=== PATIENT | female | born 1930 | race Caucasian/White ===

== ENCOUNTER 2017-09-13 22:01 | Inpatient (IN) | payer MEDICARE ==
[2017-09-13] MEDS ORDERED: Morphine 4 MG/ML VIAL ONE (22:46)
--- NOTE | 2017-09-13 23:09 | RAD ---
AP VIEW CHEST: HISTORY: Preoperative chest radiograph. Patient with right hip fracture. TECHNIQUE: AP view chest is obtained. FINDINGS: The lungs are well aerated. No evidence of active intrathoracic disease is seen. No evidence of eff usions, pneumonia, or pneumothorax is seen. IMPRESSION: Unremarkable anterior-posterior view chest. POS: [facility]
[2017-09-13] MEDS ORDERED: hydrALAZINE 20 MG/ML VIAL ONE (23:32)
[2017-09-13] MEDS ORDERED: traMADol HCl 50 MG TAB PO PRN (23:52)
[2017-09-13] MEDS ORDERED: Dextrose 50% Abboject 50 ML SYRINGE SLOW IVP PRN (23:54)
[2017-09-13] MEDS ORDERED: Ondansetron HCl/PF 4 MG/2 ML Vial IVP PRN (23:54)
[2017-09-13] MEDS ORDERED: Ondansetron ODT 4 MG TAB PO PRN (23:54)
[2017-09-13] MEDS ORDERED: Labetalol HCl 100 MG/20 ML VIAL SLOW IVP PRN (23:54)
[2017-09-13] MEDS ORDERED: Dextrose 5% in Water 1,000 ML IV PRN (23:54)
[2017-09-13] MEDS ORDERED: hydrALAZINE 20 MG/ML VIAL SLOW IVP PRN (23:54)
--- NOTE | 2017-09-14 01:57 | HP ---
DATE OF ADMISSION: 09/14/2017 ATTENDING PHYSICIAN: Dr. Currie. TRAUMA ACTIVATION: Not applicable. HISTORY OF PRESENT ILLNESS: Isabel Holloway is an 87-year-old female who presented here to [facility] as a [place] transfer status post fall. She was evaluated in the [place] [facility] and fou nd to have a right femoral neck and greater trochanteric fracture. Orthopedic Surgery was notified a ar Trauma Services was asked to admit. Per patient, she was attempting to move a chair in her house when the reclining part of the chair came out and knocked her over causing her to fall on the floor. She had immediate onset of right hip pain. Upon my evaluation, she has chief complaint of 7/10 hip pain improved with medications, worsened with movement. Pain is constant. ALLERGIES: None. HOME MEDICATIONS: Patient takes metformin unknown dose and unknown antihypertensives. Her pharmacy is [facility] in [place] which is currently closed. CHRONIC MEDICAL ILLNESSES: Include diabetes, coronary artery disease, status post percutaneous trans luminal coronary angioplasty, hypertension, and CKD. PAST SURGICAL HISTORY: PTCA. SOCIAL HISTORY: The patient is a retired information officer. She lives alone and ambulates independently . Denies alcohol, tobacco or illicit drug use. FAMILY HISTORY: Significant for father from cancer, details unknown. Mother with coronary artery disease. Sisters with diabetes and a daughter with diabetes. REVIEW OF SYSTEMS: A 10-point review of systems was performed and essentially negative except as ind icated in the HPI. PHYSICAL EXAMINATION: VITAL SIGNS: Blood pressure 166/67, pulse 88, respirations 17, O2 sat 94% on 2 liters nasal cannula, temperature 98.5. GENERAL: Elderly appearing female in no acute distress, resting in bed. HEAD: Normocephalic, atraumatic. EYES: Pupils were PERRL. Extraocular movements are intact. NECK: Supple. Trachea is midline. CHEST: Atraumatic. No tenderness to palpation. Normal work of breathing, symmetric rise. LUNGS: Clear to auscultation bilaterally. CARDIOVASCULAR: Regular rate and rhythm, no obvious murmurs, rubs, or gallops. GASTROINTESTINAL: Abdomen is soft, nontender, nondistended. MUSCULOSKELETAL: Moves all extremities x4. There is a skin tear on the right elbow and the right lo wer extremity range of motion is limited secondary to pain. There is tenderness to palpation of the right hip. She is neurovascularly intact distal to the side of her injury. NEUROLOGIC: GCS is 15. No focal deficit is noted. LABORATORY DATA AND IMAGING DATA: WBC 13.1, hemoglobin 12.4, hematocrit 34.2, platelet count 188, IN R 0.9. Sodium 144, potassium 4.2, chloride 106, carbon dioxide 26, BUN 31, creatinine 1.69, glucose 233, calcium 9.3, AST and ALT within normal limits. EKG was sinus rhythm with first degree AV block. No evidence of STEMI. RADIOGRAPHIC FINDINGS: Right hip x-ray was read by Radiology as having limited sensitivity, but was suspicious for fracture. CT of the abdomen and pelvis was read as having a right femoral neck and gr eater trochanteric fracture. Chest x-ray with coarse interstitial markings and no obvious acute trau matic injury or cardiopulmonary process. ASSESSMENT: 1. Status post mechanical fall. 2. Right femoral neck fracture. 3. Acute traumatic pain. 4. History of diabetes with hyperglycemia. 5. History of hypertension. 6. History of coronary artery disease. 7. History of chronic kidney disease, creatinine appears to be at baseline. PLAN: 1. Admit to Trauma Services. Per discussion with Dr. Lyons, Orthopedic Surgery, plans are for op erative intervention tomorrow. Plan for operative intervention tomorrow. Perioperative pain managem ent with p.o. and IV analgesics. Reconcile home medications with the patient's home pharmacy. P.r.n . antihypertensives in the meantime. Accu-Cheks and sliding scale insulin. Postoperative PT and OT. 2. DVT and gastritis prophylaxis as appropriate. Plans for admission were discussed with the robin mayes, who vocalized her understanding. All questions were answered at the time of this dictation. Cheryl kirkland is a FULL CODE per my discussion with her at bedside. Trauma attending has been notified of admi ssion.
[2017-09-14 02:58] VITALS: BMI 21.9
[2017-09-14] MEDS: Acetaminophen 1,000 MG in Premix Bag 1 BAG IVPB SCH ×3 (03:20→12:07)
[2017-09-14] MEDS: Sodium Chloride 0.9% 1,000 ML IV SCH ×2 (04:20→17:31)
[2017-09-14 05:16] LABS: #Monocytes 0.5 thou/uL (0.11-0.59); %Eosinophils 0.2 % (0.0-10.0); %Lymphocytes 8.3 % (21.0-51.0); %Monocytes 4.1 % (0.0-10.0); %Neutrophils 87.4 % (42.0-75.0); Hemoglobin 11.1 g/dL (12.0-16.0); Mean Corpuscular HGB CONC 33.8 g/dL (32.0-36.0); Mean Corpuscular Hemoglobin 32.7 pg (27.0-31.0); Mean Corpuscular Volume 96.9 fL (78.0-98.0); Mean Platelet Volume 8.2 fL (7.4-10.4); Platelet Count 161 thou/uL (130-400); RBC Distribution Width 11.9 % (11.5-14.5); White Blood Cell (WBC) Count 12.6 thou/uL (4.8-10.8)
[2017-09-14 05:31] LABS: Anion Gap 12 mmol/L (10-20); BUN (Urea Nitrogen) 31 mg/dL (9.8-20.1); Calc. Creatinine Clearance 27 mL/min (70-130); Calcium 8.8 mg/dL (7.8-10.44); Carbon Dioxide 25 mmol/L (23-31); Chloride 108 mmol/L (98-107); Estimated GFR-MDRD 35; Glucose 229 mg/dL (83-110); Magnesium 1.4 mg/dL (1.6-2.6); Phosphorus 3.6 mg/dL (2.3-4.7); Potassium 4.1 mmol/L (3.5-5.1); Sodium 141 mmol/L (136-145)
[2017-09-14] MEDS: traMADol HCl 50 MG TAB PO SCH ×4 (05:31→23:41)
[2017-09-14 05:33] LABS: CKMB 0.8 ng/mL (0-6.6); Troponin I 0.017 ng/mL (< 0.028)
[2017-09-14] MEDS ORDERED: Magnesium 2 GM/NS 0.9% 100 ML 2 GM in Premix Bag 1 BAG IVPB SCH (07:45)
[2017-09-14] MEDS ORDERED: CEFAZOLIN/Water 2 GM/20 ML SYRINGE SLOW IVP SCH (07:45)
--- NOTE | 2017-09-14 08:45 | CON ---
DATE OF CONSULTATION: 09/14/2017 CHIEF COMPLAINT: Right hip pain. HISTORY OF PRESENT ILLNESS: Ms. Holloway is an 87-year-old female who was attempting to [facility] yesterday evening. She fell backwards after losing balance. She landed on her right side. She h ad pain in the hip. She was unable to ambulate. She was taken to the hospital and found to have a f emoral neck fracture. She initially went to [place] [facility]. She has been admitted to the hospital. Sh e is resting comfortably. No significant complications or problems overnight. Pain is controlled. ALLERGIES: None. MEDICATIONS: The patient takes metformin and medication for hypertension. PAST MEDICAL HISTORY: Diabetes, coronary artery disease, hypertension, chronic kidney disease. PAST SURGICAL HISTORY: Coronary catheterization. SOCIAL HISTORY: The patient denies any tobacco, alcohol or drug use. She independently ambulates. FAMILY MEDICAL HISTORY: Noncontributory. REVIEW OF SYSTEMS: Positive for mild hip pain with motion, otherwise negative 10-point review of sys tems. IMAGES: X-rays of the pelvis and hip demonstrate an impacted minimally displaced femoral neck fractu re on the right side. PHYSICAL EXAMINATION: VITAL SIGNS: Temperature is 98.2, pulse is 69, respiratory 18, blood pressure 139/65. GENERAL: She is alert and oriented, no apparent distress, lying supine. HEENT: Normocephalic, atraumatic. RESPIRATORY: Breathing comfortably. ABDOMEN: Soft and nontender, nondistended. MUSCULOSKELETAL: The patient's right lower extremity has good motion. She has intact flexion and ex tension of the foot and ankle. Palpable pulse. She has pain with hip movement. Upper extremities a re atraumatic. IMPRESSION: Right impacted minimally displaced femoral neck fracture in an elderly female. PLAN: At this point, the patient will need operative intervention. We will plan to take her to the operating room for percutaneous screw fixation of the femoral neck fracture. She is aware of risks a nd benefits. She wants to proceed with surgery. Goal of surgery, early mobilization and to prevent complications of prolonged bed rest. Risks have been reviewed. She will have medical optimization.
[2017-09-14] MEDS ORDERED: Famotidine/PF 20 mg/2ml Vial SLOW IVP SCH (09:00)
[2017-09-14] MEDS: Polyethylene Glycol 3350 17 GM Packet PO SCH (09:20)
[2017-09-14] MEDS: Famotidine 20 MG TAB PO SCH (09:20)
[2017-09-14] MEDS: Senokot S 8.6-50 MG TAB PO SCH ×2 (09:20→21:37)
--- NOTE | 2017-09-14 11:15 | PRG ---
DATE OF SERVICE: 09/14/2017 SUBJECTIVE: Isabel Holloway is an 87-year-old female who had a mechanical fall and sustained a right h ip fracture. There were no acute overnight events after admission. This morning, the patient states that her pain has been well controlled. She has been seen and evaluated by Orthopedic Surgery who p lanned for operative intervention later today. Upon our evaluation she vocalizes no complaint. OBJECTIVE: VITAL SIGNS: Temperature 98.2, pulse 69, respiration rate 18, O2 sat 92% on room air, blood pressure 139/65. GENERAL: Elderly female in no acute distress, resting in bed. PULMONARY: Normal work of breathing. Symmetric rise. CARDIOVASCULAR: Regular rate and rhythm. GASTROINTESTINAL: Soft, nontender, nondistended. MUSCULOSKELETAL: Moves all extremities x4. NEUROLOGIC: No focal deficit is noted. LABORATORY DATA: WBC 12.6, hemoglobin 11.1, hematocrit 32.9, platelet count 161. Sodium 141, potass ium 4.1, chloride 108, carbon dioxide 25, BUN 31, creatinine 1.43, glucose 229. Phosphorus 3.6, magn esium 1.4. ASSESSMENT: 1. Status post mechanical fall. 2. Acute traumatic pain. 3. Right hip fracture. 4. Hypomagnesemia. 5. History of hypertension. 6. Diabetes with hyperglycemia. 7. History of coronary artery disease. 8. History of chronic kidney disease, stable. PLAN: Continue gentle IV fluid hydration. Follow the patient postoperatively. Perioperative pain m anagement. Postoperative PT and OT. The patient lived independently prior to this accident and will need inpatient rehab consultation. Plan of care was discussed with the patient at bedside and all q uestions were answered at the time of this dictation. The patient was seen and evaluated with Dr. Menendez.
[2017-09-14] MEDS ORDERED: CEFAZOLIN/Water 2 GM/20 ML SYRINGE ONE (11:44)
[2017-09-14] MEDS ORDERED: Midazolam HCl 2 mg/2 ml Vial ONE (12:11)
[2017-09-14] MEDS ORDERED: Fentanyl 100 MCG/2 ML VIAL ONE ×2 (12:11→12:42)
[2017-09-14] MEDS ORDERED: Bupivacaine HCl 0.5%/Epinephrine 1:200,000/PF 30 ml Vial ONE (13:39)
[2017-09-14] MEDS ORDERED: PROPOFOL 200 MG/20 ML VIAL ONE (13:42)
[2017-09-14] MEDS ORDERED: Lidocaine 1% PF 5 ML VIAL ONE (13:42)
[2017-09-14] MEDS ORDERED: Glycopyrrolate 0.2 MG/ML 5 ML SYRINGE ONE (13:42)
[2017-09-14] MEDS ORDERED: Promethazine HCl 25 MG/ML VIAL IM PRN (13:54)
[2017-09-14] MEDS ORDERED: Ondansetron HCl/PF 4 MG/2 ML Vial IVP PRN (13:54)
[2017-09-14] MEDS ORDERED: Promethazine HCl 25 MG/ML VIAL SLOW IVP PRN (13:54)
--- NOTE | 2017-09-14 14:06 | OP ---
DATE OPERATION: 09/14/2017 OPERATION: Dynamic hip screw fixation of basicervical femoral neck fracture. PREOPERATIVE DIAGNOSIS: Femoral neck fracture, right hip. POSTOPERATIVE DIAGNOSIS: Femoral neck fracture, right hip. COMPLICATIONS: None. ESTIMATED BLOOD LOSS: 100 mL. SURGEON: Damion Martin M.D. ELEMENTARY READING SPECIALIST: Bora Chinchilla PA-C. IMPLANTS: Synthes dynamic hip screw with 3 hole side plate. INDICATIONS: Ms. Holloway is an 87-year-old female who fell. She fractured the basicervical region o f her femoral neck. She was indicated for dynamic hip screw fixation to restore anatomic alignment a nd promote healing and promote early mobilization. Risks have been reviewed. She elected to proceed with the operation. DESCRIPTION OF PROCEDURE: Ms. Holloway was identified in the preoperative holding area. Her correct extremity was marked. She was carried to the operating room. She was positioned supine. General an esthesia was induced. A multidisciplinary timeout was performed. The right lower extremity was prep ped and draped in sterile fashion. We began the procedure with evaluation under intraoperative x-ray. We reduced the fracture back into an anatomic position. At this point, we made a lateral incision. We dissected down through the sub cutaneous tissues to the fascia which was opened. We then exposed the lateral cortex of the femur. At this point, a 135 degree guide was used to place a guidewire in the center position of the femoral head. Once this was accomplished, we overdrilled the guidewire. We then placed our dynamic hip scr ew and side plate. Three screws were placed through the plate as well. This completed fixation. We took x-rays in orthogonal planes. We thoroughly irrigated with copious lavage. At this point, the wound was closed in layers appropriately. The patient was taken to the recovery room in good conditi on.
--- NOTE | 2017-09-14 17:11 | RAD ---
RIGHT HIP TWO VIEWS: HISTORY: ORIF of right femur fracture. COMPARISON: 09/13/2017 FINDINGS/IMPRESSION: Two limited intraoperative fluoroscopic views of the right hip were submitted for interpretation. Th e patient is status post ORIF of the proximal right femur fracture. No perihardware lucency is ident ified. POS: [facility]
[2017-09-14] MEDS: Acetaminophen 500 MG TAB PO SCH ×2 (17:32→23:41)
[2017-09-14] MEDS: Pravastatin Sodium 40 MG TAB PO SCH (21:37)
[2017-09-14] MEDS: CEFAZOLIN/Water 2 GM/20 ML SYRINGE SLOW IVP SCH (21:37)
[2017-09-15] MEDS: CEFAZOLIN/Water 2 GM/20 ML SYRINGE SLOW IVP SCH (03:29)
[2017-09-15] MEDS: Acetaminophen 500 MG TAB PO SCH ×3 (05:33→17:51)
[2017-09-15] MEDS: traMADol HCl 50 MG TAB PO SCH ×3 (05:33→17:51)
[2017-09-15] MEDS: Sodium Chloride 0.9% 1,000 ML IV SCH ×2 (05:34→14:59)
[2017-09-15 06:46] LABS: #Eosinphils 0.1 thou/uL (0.0-0.7); #Lymphocytes 1.1 thou/uL (1.20-3.40); #Monocytes 0.7 thou/uL (0.11-0.59); #Neutrophils 9.1 thou/uL (1.40-6.50); %Basophils 0.1 % (0.0-1.0); %Eosinophils 0.8 % (0.0-10.0); %Lymphocytes 9.8 % (21.0-51.0); %Monocytes 6.7 % (0.0-10.0); %Neutrophils 82.6 % (42.0-75.0); Hemoglobin 10.1 g/dL (12.0-16.0); Mean Corpuscular HGB CONC 33.8 g/dL (32.0-36.0); Mean Corpuscular Hemoglobin 33.5 pg (27.0-31.0); Mean Platelet Volume 8.6 fL (7.4-10.4); Platelet Count 131 thou/uL (130-400); RBC Distribution Width 11.9 % (11.5-14.5); Red Blood Cell (RBC) Count 3.01 mill/uL (4.20-5.40)
[2017-09-15 06:52] LABS: Anion Gap 11 mmol/L (10-20); BUN (Urea Nitrogen) 23 mg/dL (9.8-20.1); Calc. Creatinine Clearance 29 mL/min (70-130); Calcium 8.3 mg/dL (7.8-10.44); Carbon Dioxide 23 mmol/L (23-31); Chloride 109 mmol/L (98-107); Estimated GFR-MDRD 37; Glucose 170 mg/dL (83-110); Magnesium 1.6 mg/dL (1.6-2.6); Phosphorus 3.2 mg/dL (2.3-4.7); Sodium 139 mmol/L (136-145)
[2017-09-15] MEDS ORDERED: Magnesium Sulfate 2 GM in Sodium Chloride 0.9% 100 ML IVPB SCH (07:30)
[2017-09-15] MEDS ORDERED: Magnesium 2 GM/NS 0.9% 100 ML 2 GM in Premix Bag 1 BAG IVPB SCH (07:45)
[2017-09-15] MEDS: Polyethylene Glycol 3350 17 GM Packet PO SCH (08:25)
[2017-09-15] MEDS: Losartan/Hydrochlorothiazide 100 mg/25 mg Tablet PO SCH (08:26)
[2017-09-15] MEDS: Senokot S 8.6-50 MG TAB PO SCH ×2 (08:26→21:34)
[2017-09-15] MEDS: Amlodipine 5 MG TAB PO SCH (08:26)
[2017-09-15] MEDS: Famotidine 20 MG TAB PO SCH (08:26)
[2017-09-15] MEDS ORDERED: Enoxaparin Sodium 40 MG/0.4 ML SYRINGE SC SCH (09:00)
[2017-09-15] MEDS ORDERED: Sodium Chloride 0.9% 500 ML IV SCH (10:00)
[2017-09-15] MEDS: HumaLOG 300 UNITS/3 ML VIAL SC PRN ×2 (12:20→18:11)
[2017-09-15] MEDS ORDERED: Sodium Chloride 0.9% 250 ML 250 ML IVPB SCH (18:45)
[2017-09-15] MEDS: Pravastatin Sodium 40 MG TAB PO SCH (21:34)
--- NOTE | 2017-09-16 00:10 | PRG ---
DATE OF SERVICE: 09/15/2017 ATTENDING PHYSICIAN: Dr. Noah Menendez. SUBJECTIVE: Ms. Holloway is an 87-year-old female who had a fall sustaining a right hip fracture. Sh e is postoperative day #1, status post ORIF of the right hip fracture. She reports the pain has been well controlled. She will mobilize with physical and occupational therapy today. OBJECTIVE: VITAL SIGNS: Temperature 97.6, pulse 95, respirations 14, O2 sat 92% room air, blood pressure 121/69 . GENERAL: Elderly female lying in bed in no acute distress. PULMONARY: Bilateral breath sounds clear. Chest movement symmetrical. No respiratory distress. HEART: Regular rate and rhythm. GASTROINTESTINAL: Soft, nontender, nondistended. MUSCULOSKELETAL: Moves all extremities x4. Cap refill brisk in all extremities. NEUROLOGIC: GCS 15. Awake, alert, and oriented x3. LABORATORY DATA: CBC: WBC 11.0, RBC 3.01, hemoglobin 10.1 down from 11.1 yesterday, hematocrit 29.8 , platelets 131. Chemistry: Sodium 139, potassium 4.0, chloride 109, carbon dioxide 23, BUN 23, cre atinine 1.35, glucose 170, calcium 8.3, phosphorus 3.2, magnesium 1.6. ASSESSMENT: 1. Status post ground level fall. 2. Right hip fracture, postoperative day #1 status post open reduction and internal fixation. 3. Acute traumatic pain, well controlled. 4. Hypomagnesemia. 5. History of hypertension. 6. History of diabetes. 7. History of coronary artery disease. 8. History of chronic kidney disease. PLAN: 1. Replace electrolytes as indicated. 2. Mobilize with physical and occupational therapy. 3. Case management for discharge planning. Rehab referral sent. 4. Continue pain management as ordered. Patient was seen and examined with Dr. Meenndez, who agrees with plan.
[2017-09-16] MEDS: Acetaminophen 500 MG TAB PO SCH ×4 (00:21→17:43)
[2017-09-16] MEDS: traMADol HCl 50 MG TAB PO SCH ×4 (00:21→17:44)
[2017-09-16 07:08] LABS: #Eosinphils 0.3 thou/uL (0.0-0.7); #Lymphocytes 1.4 thou/uL (1.20-3.40); #Monocytes 0.7 thou/uL (0.11-0.59); #Neutrophils 8.1 thou/uL (1.40-6.50); %Basophils 0.2 % (0.0-1.0); %Eosinophils 2.7 % (0.0-10.0); %Lymphocytes 13.6 % (21.0-51.0); %Monocytes 6.7 % (0.0-10.0); %Neutrophils 76.9 % (42.0-75.0); Hemoglobin 9.9 g/dL (12.0-16.0); Mean Corpuscular HGB CONC 34.5 g/dL (32.0-36.0); Mean Corpuscular Volume 98.5 fL (78.0-98.0); Mean Platelet Volume 7.8 fL (7.4-10.4); Platelet Count 127 thou/uL (130-400); RBC Distribution Width 11.9 % (11.5-14.5); Red Blood Cell (RBC) Count 2.91 mill/uL (4.20-5.40); White Blood Cell (WBC) Count 10.5 thou/uL (4.8-10.8)
[2017-09-16] MEDS ORDERED: Sodium Chloride 0.9% 500 ML IV SCH (07:15)
[2017-09-16 07:26] LABS: Anion Gap 9 mmol/L (10-20); BUN (Urea Nitrogen) 29 mg/dL (9.8-20.1); Calc. Creatinine Clearance 29 mL/min (70-130); Calcium 8.5 mg/dL (7.8-10.44); Carbon Dioxide 26 mmol/L (23-31); Chloride 109 mmol/L (98-107); Estimated GFR-MDRD 37; Glucose 166 mg/dL (83-110); Magnesium 2.1 mg/dL (1.6-2.6); Phosphorus 3.4 mg/dL (2.3-4.7); Potassium 3.9 mmol/L (3.5-5.1); Sodium 140 mmol/L (136-145)
[2017-09-16] MEDS ORDERED: Enoxaparin Sodium 30 MG/0.3 ML SYRINGE SC SCH (09:00)
--- NOTE | 2017-09-16 09:52 | RAD ---
SINGLE VIEW OF THE CHEST: Comparison: 09-13-17 History: Hypoxia. FINDINGS: Single view of the chest shows a normal sized cardiomediastinal silhouette. There is no evidence of c onsolidation, mass, or pleural effusion. The bones are unremarkable. IMPRESSION: No evidence of acute cardiopulmonary disease. POS: [facility]
[2017-09-16] MEDS: Senokot S 8.6-50 MG TAB PO SCH (09:55)
[2017-09-16] MEDS: Losartan/Hydrochlorothiazide 100 mg/25 mg Tablet PO SCH (09:55)
[2017-09-16] MEDS: Polyethylene Glycol 3350 17 GM Packet PO SCH (09:56)
[2017-09-16] MEDS: Amlodipine 5 MG TAB PO SCH (09:56)
[2017-09-16] MEDS: Famotidine 20 MG TAB PO SCH (09:56)
[2017-09-16] MEDS: Sodium Chloride 0.9% 1,000 ML IV SCH (10:01)
--- NOTE | 2017-09-16 10:57 | PQF ---
DATE: 09-16-17 / 09-22-17 ATTN: KATHYA MONTENEGRO NP / DR. ODOM Please exercise your independent, professional judgment in responding to the clarification form. Clinical indicators are provided on the bottom of this form for your review Please check appropriate box(s): [ ] Acute Renal Failure (ARF) / Acute Kidney Injury (NA) [ ] Acute on Chronic Renal Failure please specify Stage of CKD (see below) [ x] CKD without ARF/NA please specify Stage of CKD____stage III [ ] Other diagnosis [ ] Unable to determine In addition, please specify: Present on Admission (POA): [ x ] Yes [ ] No [ ] Unable to determine National Kidney Foundation Guidelines for CKD Staging Stage I Kidney damage with normal or increased GFR GFR > 90 Stage II Kidney damage with mildly decreased GFR GFR 60-89 Stage III Kidney damage with moderately decreased GFR GFR 30-59 Stage IV Kidney damage with severely decreased GFR GFR 16-29 Stage V Kidney failure GFR<15 ESRD End Stage Renal Disease On dialysis Acute Renal Failure/Acute Kidney Failure defined as: Increases in SCr by (>) 0.3 mg/dl within 48 hours OR- Increases in SCr by (>) 1.5 times baseline, known or presumed to have occurred within the prior 7 days OR- Urine volume < 0.5 ml/kg/hour for 6 hours (KDIGO supplement 2012 for RIFLE/ALICIA criteria) For continuity of documentation, please document condition throughout progress notes and discharge summary. Thank You. CLINICAL INDICATORS - SIGNS / SYMPTOMS / LABS H&P: HISTORY OF CHRONIC KIDNEY DISEASE CONSULT NOTE DR. LISA 09-14-17: HISTORY CKD GFR: 09-14-17: 35 09-15-17: 37 09-16-17: 37 CREATININE: 18: 1.43 18: 1.35 09-16-17: 1.36 BUN: 09-14-17: 31 18: 23 09-16-17: 29 RISK FACTORS: H&P: HOME MEDICATIONS: PATIENT TAKES METFORMIN UNKNOWN ANTIHYPERTENSIVES, HX OF DM, CAD, HTN, CKD TREATMENTS: MAR: IVF NS (This form is maintained as a part of the permanent medical record) 2014 [employer] All Rights Reserved [email or web address] Office: [phone] [facility]
[2017-09-16] MEDS: HumaLOG 300 UNITS/3 ML VIAL SC PRN ×2 (12:54→17:45)
[2017-09-16 17:08] VITALS: BP 159/70; TEMP 97.2
--- NOTE | 2017-09-17 02:41 | DIS ---
DATE OF ADMISSION: 09/13/2017 DATE OF DISCHARGE: 09/16/2017 ADMITTING PHYSICIAN: Dr. Currie. DISCHARGING PHYSICIAN: Dr. Menendez. CONSULTING PHYSICIAN: Dr. Martin, Orthopedics. REASON FOR HOSPITALIZATION: Ground level fall with hip pain. HOSPITAL DIAGNOSES: 1. Status post fall. 2. Right femoral neck fracture. PROCEDURES: Dynamic hip screw fixation of basic cervical femoral neck fracture, date, 09/14/2017, Dr. Mario lowe, please refer to Dr. Martin's operative report for complete details. DISCHARGE CONDITION: Good. DISPOSITION: Inpatient rehabilitation. DISCHARGE MEDICATIONS: 1. Acetaminophen 1000 mg oral every 6 hours. 2. Amlodipine 5 mg oral daily. 3. Lovenox 30 mg daily. 4. Pepcid 20 mg daily. 5. MiraLax 17 grams daily. 6. Senokot 2 tablets daily. 7. Tramadol 50 mg q.6 hours as needed. 8. Pravachol 40 mg daily. 9. Glipizide 2.5 mg every morning. 10. Losartan/hydrochlorothiazide 10/25 daily. THERAPY: To be continued inpatient rehabilitation. ACTIVITY: As tolerated. DIET: Regular. Plans for followup Dr. Martin in 2 weeks. BRIEF HISTORY OF HOSPITALIZATION: Ms. Holloway is an 87-year-old female who had a ground level fall o n 09/14/2017. She was evaluated in the emergency department in [place] and found to have a right fe moral neck fracture. She was transferred to [place] [facility] for higher level of care . She was admitted to the hospital by Trauma Services. Consultation was made to Dr. Martin, Orth opedic Surgery. Dr. Martin took the patient to the operating room for fixation of the fracture. She was then managed on the surgical floor postoperatively where she will begin mobilizing with physi tawnya and occupational therapy. She had no postoperative complications. Case management was consulted for discharge planning. She was accepted to inpatient rehab and discharged to that facility on 08/30. She is to follow up with Dr. Martin. She may follow up with Trauma Services in a p.r.n. fashion. The patient was seen and examined with Dr. Menendez who agrees with the plan.
== END 2017-09-16 18:46 | disposition home or self-care (01) | DRG 482 ==
LOC: ERS 22:01 → SURG B 23:54
PROVIDERS: ADMIT Surgery; ATTEND Surgery
PROC: 0QS634Z Reposition Right Upper Femur with Internal Fixation Device, Percutaneous Approach (ICD-10-PCS; principal; 2017-09-14)
DX: S72.001A Fracture of unspecified part of neck of right femur, initial encounter for closed fracture (principal); E83.42 Hypomagnesemia; I25.10 Atherosclerotic heart disease of native coronary artery without angina pectoris; I12.9 Hypertensive chronic kidney disease with stage 1 through stage 4 chronic kidney disease, or unspecified chronic kidney disease; E11.22 Type 2 diabetes mellitus with diabetic chronic kidney disease; N18.3 Chronic kidney disease, stage 3 (moderate); E11.65 Type 2 diabetes mellitus with hyperglycemia; W01.0XXA Fall on same level from slipping, tripping and stumbling without subsequent striking against object, initial encounter; Y93.9 Activity, unspecified; Y92.9 Unspecified place or not applicable; Y99.9 Unspecified external cause status; Z79.84 Long term (current) use of oral hypoglycemic drugs; Z79.899 Other long term (current) drug therapy
CPT/HCPCS: 36415; 36416; 71045; 76001; 80048; 82553; 83735; 83880; 84100; 84484; 85025; 93005; 96374; C1713; C1769; G0390; G8978-GP-CL; G8979-GP-CJ; G8987-GO-CK; G8988-GO-CI; J0131; J0360; J0670; J1650; J2001; J2250; J2270; J2704; J3010; J3475